=== PATIENT | female | born 1975 | race Caucasian/White ===

== ENCOUNTER 2024-09-25 09:46 | Emergency (ER) | payer OTHER ==
[~2024-09-25] VITALS: Ht 157.5 cm; Wt 82.0 kg
[~2024-09-25 09:46] MED LIST: AMOX1TAB16 MT; ASPI-1406 MT; CLOP-31 PO; FAMO20TA8 PO; FURO-152 PO; INSLIS SUBCUT; INSU100I28 SQ; LOSA-413 PO; MAGN400T26 PO; METO25TA6 PO; SULF1TAB48 MT; TRAM50TA PO
[2024-09-25 09:56] VITALS: O2SAT 98
[2024-09-25] MEDS: ACETAMINOPHEN 325MG TABLET PO ONE (11:18)
[2024-09-25] MEDS ORDERED: PRED10TA23 MT (11:37)
[2024-09-25 12:18] VITALS: BP 124/68; PULSE 88; RESP 16; TEMP 36.72516; O2SAT 99
== END 2024-09-25 12:18 | disposition home or self-care (01) ==
LOC: ER 10:14
DX: R07.0 Pain in throat (principal); R11.0 Nausea; E11.9 Type 2 diabetes mellitus without complications; I10 Essential (primary) hypertension; Z79.899 Other long term (current) drug therapy; Z95.1 Presence of aortocoronary bypass graft; Z20.822 Contact with and (suspected) exposure to COVID-19
CPT/HCPCS: 87426; 87430; 99283